=== PATIENT | female | born 1960 | race Caucasian/White ===

== ENCOUNTER 2020-06-15 12:16 | Day surgery (SDC) | payer MEDICARE ==
[2020-06-15] MEDS ORDERED: Depo-Medrol 40 MG/ML IM ONE (12:17)
[2020-06-15] MEDS ORDERED: Xylocaine-Mpf 2% 5 Ml Vial IJ ONE (12:17)
[2020-06-15] MEDS ORDERED: DIPRIVAN 200 MG/20 ML IV ONE (13:30)
[2020-06-15] MEDS ORDERED: Ketamine HCl 50 MG/ML ONE (13:30)
--- NOTE | 2020-06-15 15:15 | XRAY ---
Indication: Left L3-S1 MBB. Intraoperative fluoroscopy was provided for 10 seconds. Single digital spot image submitted for interpretation demonstrate posterior needle tips projecting over the expected left L3-S1 nerve roots. Correlate with intraoperative findings/report.
[2020-06-15] MEDS ORDERED: Lactated Ringers 1,000 ML IV ONE (15:16)
--- NOTE | 2020-06-15 15:21 | XRAY ---
10 seconds fluoroscopy time in surgery for left L3-S1 MBB.
== END 2020-06-15 14:00 | disposition home or self-care (01) ==
LOC: SDC-PAIN 12:16 → SDC 12:16
PROVIDERS: ATTEND Psychiatry & Neurology Pain Medicine
DX: M47.816 Spondylosis without myelopathy or radiculopathy, lumbar region (principal); I10 Essential (primary) hypertension; J44.9 Chronic obstructive pulmonary disease, unspecified; K21.9 Gastro-esophageal reflux disease without esophagitis; K50.90 Crohn's disease, unspecified, without complications; Z86.73 Personal history of transient ischemic attack (TIA), and cerebral infarction without residual deficits; Z79.899 Other long term (current) drug therapy; Z79.01 Long term (current) use of anticoagulants
CPT/HCPCS: 64493; 64494; 64495; 72020; 77002; 82947; 82962; J1030; J2704

== ENCOUNTER 2020-07-20 08:50 | Day surgery (SDC) | payer MEDICARE ==
[2020-07-20] MEDS ORDERED: BUPIVACAINE 0.5% VIAL IJ ONE (08:51)
[2020-07-20] MEDS ORDERED: Depo-Medrol 40 MG/ML IM ONE (08:51)
[2020-07-20] MEDS ORDERED: DIPRIVAN 200 MG/20 ML IV ONE (10:07)
[2020-07-20] MEDS ORDERED: Ketamine HCl 50 MG/ML ONE (10:07)
--- NOTE | 2020-07-20 12:12 | XRAY ---
Indication: Left L3-S1 MBB. Intraoperative fluoroscopy was provided for 24 seconds. Single digital spot image submitted for interpretation demonstrate posterior needle tips projecting over the expected left L3-S1 nerve roots. Correlate with intraoperative findings/report.
--- NOTE | 2020-07-20 12:16 | XRAY ---
24 seconds fluoroscopy time in surgery for left L3-S1 MBB.
[2020-07-20] MEDS ORDERED: Lactated Ringers 1,000 ML IV ONE (16:04)
== END 2020-07-20 10:39 | disposition home or self-care (01) ==
LOC: SDC-PAIN 08:50
PROVIDERS: ATTEND Psychiatry & Neurology Pain Medicine
DX: M47.816 Spondylosis without myelopathy or radiculopathy, lumbar region (principal); E11.9 Type 2 diabetes mellitus without complications; I10 Essential (primary) hypertension; J44.9 Chronic obstructive pulmonary disease, unspecified; K21.9 Gastro-esophageal reflux disease without esophagitis; I25.10 Atherosclerotic heart disease of native coronary artery without angina pectoris; M79.7 Fibromyalgia; G25.81 Restless legs syndrome; K50.90 Crohn's disease, unspecified, without complications; Z79.899 Other long term (current) drug therapy
CPT/HCPCS: 64493; 64494; 64495; 72020; 77002; 82947; 82962; J1030; J2704

== ENCOUNTER 2020-12-21 09:34 | Day surgery (SDC) | payer MEDICARE ==
[2020-12-21] MEDS ORDERED: LIDOCAINE HCL 2% 100 MG/5 ML IJ ONE (09:35)
[2020-12-21] MEDS ORDERED: DIPRIVAN 200 MG/20 ML IV ONE (10:41)
--- NOTE | 2020-12-21 11:09 | XRAY ---
Indication: Right L3-S1 MBB. Intraoperative fluoroscopy provided for 7 seconds. Single digital spot image submitted for interpretation demonstrates posterior needle tips projecting over the expected right L3-S1 nerve roots. Correlate with intraoperative findings/report.
[2020-12-21] MEDS ORDERED: Lactated Ringers 1,000 ML IV ONE (15:27)
--- NOTE | 2020-12-23 08:53 | XRAY ---
7 seconds fluoroscopy time in surgery for right L4-S1 MBB.
== END 2020-12-21 11:05 | disposition home or self-care (01) ==
LOC: SDC-PAIN 09:34
PROVIDERS: ATTEND Psychiatry & Neurology Pain Medicine
DX: M47.816 Spondylosis without myelopathy or radiculopathy, lumbar region (principal); E11.9 Type 2 diabetes mellitus without complications; I10 Essential (primary) hypertension; I25.10 Atherosclerotic heart disease of native coronary artery without angina pectoris; G25.81 Restless legs syndrome; J44.9 Chronic obstructive pulmonary disease, unspecified; K21.9 Gastro-esophageal reflux disease without esophagitis; K50.90 Crohn's disease, unspecified, without complications; M79.7 Fibromyalgia; Z79.899 Other long term (current) drug therapy
CPT/HCPCS: 64493; 64494; 64495; 72020; 77002; 82947; J2704

== ENCOUNTER 2021-01-25 08:00 | Day surgery (SDC) | payer MEDICARE ==
[2021-01-25] MEDS ORDERED: BUPIVACAINE 0.5% VIAL IJ ONE (08:01)
[2021-01-25] MEDS ORDERED: DIPRIVAN 200 MG/20 ML IV ONE (10:00)
[2021-01-25] MEDS ORDERED: Lactated Ringers 1,000 ML IV ONE (16:27)
--- NOTE | 2021-01-26 11:43 | XRAY ---
12 seconds fluoroscopy time in surgery for right L3-S1 MBB.
== END 2021-01-25 10:36 | disposition home or self-care (01) ==
LOC: SDC-PAIN 08:00
PROVIDERS: ATTEND Psychiatry & Neurology Pain Medicine
DX: M47.816 Spondylosis without myelopathy or radiculopathy, lumbar region (principal); I10 Essential (primary) hypertension; E11.9 Type 2 diabetes mellitus without complications; I25.10 Atherosclerotic heart disease of native coronary artery without angina pectoris; I50.9 Heart failure, unspecified; J44.9 Chronic obstructive pulmonary disease, unspecified; K21.9 Gastro-esophageal reflux disease without esophagitis; F41.9 Anxiety disorder, unspecified; F32.9 Major depressive disorder, single episode, unspecified; Z79.899 Other long term (current) drug therapy
CPT/HCPCS: 64493; 64494; 64495; 72020; 77002; 82947; J2704

== ENCOUNTER 2021-03-15 13:04 | Day surgery (SDC) | payer MEDICARE ==
[2021-03-15] MEDS ORDERED: Xylocaine 1% Vial 30 ML PF IJ ONE (13:05)
[2021-03-15] MEDS ORDERED: BUPIVACAINE 0.5% VIAL IJ ONE (13:05)
[2021-03-15] MEDS ORDERED: Depo-Medrol 40 MG/ML IM ONE (13:05)
[2021-03-15] MEDS ORDERED: Lactated Ringers 1,000 ML IV ONE (16:37)
--- NOTE | 2021-03-15 16:39 | XRAY ---
Indication: Right L3-S1 RFA. Intraoperative fluoroscopy provided for 31 seconds. 2 digital spot image submitted for interpretation demonstrates posterior needle tips projecting over the expected left L3-S1 nerve roots. Correlate with intraoperative findings/report.
--- NOTE | 2021-03-15 17:01 | XRAY ---
31 seconds fluoroscopy time in surgery for left L3-S1 RFA.
== END 2021-03-15 15:25 | disposition home or self-care (01) ==
LOC: SDC-PAIN 13:04
PROVIDERS: ATTEND Psychiatry & Neurology Pain Medicine
DX: M47.817 Spondylosis without myelopathy or radiculopathy, lumbosacral region (principal); E11.9 Type 2 diabetes mellitus without complications; Z79.899 Other long term (current) drug therapy
CPT/HCPCS: 64635; 64636; 72100; 77002; 82947; J1030; J2001

== ENCOUNTER 2021-03-22 13:24 | Day surgery (SDC) | payer MEDICARE ==
[2021-03-22] MEDS ORDERED: Marcaine Mpf 0.5% Vial 30 Ml IJ ONE (13:25)
[2021-03-22] MEDS ORDERED: Depo-Medrol 40 MG/ML IM ONE (13:25)
[2021-03-22] MEDS ORDERED: Xylocaine 1% Vial 30 ML PF IJ ONE (13:25)
[2021-03-22] MEDS ORDERED: Lactated Ringers 1,000 ML IV ONE (13:50)
[2021-03-22] MEDS ORDERED: DIPRIVAN 200 MG/20 ML IV ONE (14:32)
--- NOTE | 2021-03-22 17:03 | XRAY ---
23 seconds fluoroscopy time in surgery for right L3-S1 RFA.
--- NOTE | 2021-03-24 09:17 | XRAY ---
Indication: Right L3-S1 RFA. Intraoperative fluoroscopy was provided for 23 seconds. 3 digital spot films submitted for interpretation demonstrate posterior needle tips projected over the expected course of the right L3-S1 nerve roots. Correlate with intraoperative findings/report.
== END 2021-03-22 15:05 | disposition home or self-care (01) ==
LOC: SDC-PAIN 13:24
PROVIDERS: ATTEND Psychiatry & Neurology Pain Medicine
DX: M47.816 Spondylosis without myelopathy or radiculopathy, lumbar region (principal); E11.9 Type 2 diabetes mellitus without complications; Z79.899 Other long term (current) drug therapy
CPT/HCPCS: 64635; 64636; 72100; 77002; 82947; J1030; J2001; J2704

== ENCOUNTER 2023-05-15 07:01 | Day surgery (SDC) | payer MEDICARE ==
[2023-05-15] MEDS ORDERED: BUPIVACAINE 0.5% VIAL IJ ONE (07:02)
[2023-05-15] MEDS ORDERED: Depo-Medrol 40 MG/ML IM ONE (07:02)
[2023-05-15] MEDS ORDERED: XYLOCAINE 1% HCL 20 ML MDV IJ ONE (07:02)
[2023-05-15] MEDS ORDERED: DIPRIVAN 200 MG/20 ML IV ONE ×2 (07:54→08:12)
--- NOTE | 2023-05-15 09:48 | XRAY ---
Indication: Left L4-S1 RFA. Intraoperative fluoroscopy provided for 21 seconds. 3 digital spot image submitted for interpretation demonstrates posterior needle tips projecting over the expected left L4-S1 nerve roots. Correlate with intraoperative findings/report.
--- NOTE | 2023-05-15 11:36 | XRAY ---
21 seconds of fluoroscopy was used in surgery for a left L4-S1 RFA.
[2023-05-15] MEDS ORDERED: Lactated Ringers 1,000 ML IV ONE (11:41)
== END 2023-05-15 09:15 | disposition home or self-care (01) ==
LOC: SDC-PAIN 07:01
PROVIDERS: ATTEND Psychiatry & Neurology Pain Medicine
DX: M47.816 Spondylosis without myelopathy or radiculopathy, lumbar region (principal); E11.9 Type 2 diabetes mellitus without complications; Z79.899 Other long term (current) drug therapy
CPT/HCPCS: 64635; 64636; 72100; 77002; 82947; J1030; J2704

== ENCOUNTER 2023-05-29 06:48 | Day surgery (SDC) | payer MEDICARE ==
[2023-05-29] MEDS ORDERED: Depo-Medrol 40 MG/ML IM ONE (06:49)
[2023-05-29] MEDS ORDERED: BUPIVACAINE 0.5% VIAL IJ ONE (06:49)
[2023-05-29] MEDS ORDERED: LIDOCAINE HCL 1% 50 MG/5 ML VL PF IJ ONE (06:49)
[2023-05-29] MEDS ORDERED: DIPRIVAN 200 MG/20 ML IV ONE (08:05)
[2023-05-29] MEDS ORDERED: PHENYLEPHRINE HCL ONE (08:18)
[2023-05-29] MEDS ORDERED: Lactated Ringers 1,000 ML IV ONE (09:46)
--- NOTE | 2023-05-29 10:27 | XRAY ---
Indication: Right L4-S1 RFA. Intraoperative fluoroscopy provided for 28 seconds. 4 digital spot images submitted for interpretation demonstrates posterior needle tips projecting over the expected right L4-S1 nerve roots. Correlate with intraoperative findings/report.
--- NOTE | 2023-05-29 11:46 | XRAY ---
28 seconds of fluoroscopy was used in surgery for a right L4-S1 RFA.
== END 2023-05-29 08:45 | disposition home or self-care (01) ==
LOC: SDC-PAIN 06:48
PROVIDERS: ATTEND Psychiatry & Neurology Pain Medicine
DX: M47.816 Spondylosis without myelopathy or radiculopathy, lumbar region (principal); E11.9 Type 2 diabetes mellitus without complications
CPT/HCPCS: 64635; 64636; 72100; 77002; 82947; J1030; J2001; J2371; J2704

== ENCOUNTER 2023-07-10 06:55 | Day surgery (SDC) | payer MEDICARE ==
[2023-07-10] MEDS ORDERED: Sodium Chloride 0.9(Preservative Free) 10 ML IJ ONE (06:56)
[2023-07-10] MEDS ORDERED: Depo-Medrol 40 MG/ML IM ONE (06:56)
[2023-07-10] MEDS ORDERED: XYLOCAINE-MPF 1% 5ML SDV IJ ONE (06:56)
[2023-07-10] MEDS ORDERED: Xopenex 1.25 MG/0.5 ML UD NEBULE IH ONE (08:59)
[2023-07-10] MEDS ORDERED: Sodium Chloride 3 ML UD NEBULES IH ONE (08:59)
[2023-07-10 09:09] VITALS: PULSE 66; RESP 18; O2SAT 95
[2023-07-10] MEDS ORDERED: DIPRIVAN 200 MG/20 ML IV ONE (09:49)
[2023-07-10] MEDS ORDERED: Lactated Ringers 1,000 ML IV ONE (10:03)
--- NOTE | 2023-07-10 12:11 | XRAY ---
Indication: Lumbar JOSÉ. Intraoperative fluoroscopy provided for 19 seconds. 2 digital spot image submitted for interpretation demonstrates posterior needle tip projecting posterior to L4-L5 interspace. Small amount of contrast injected for needle tip placement. Correlate with intraoperative findings/report.
--- NOTE | 2023-07-10 12:27 | XRAY ---
19 seconds of fluoroscopy was used in surgery for a lumbar JOSÉ.
== END 2023-07-10 10:20 | disposition home or self-care (01) ==
LOC: SDC-PAIN 06:55
PROVIDERS: ATTEND Psychiatry & Neurology Pain Medicine
DX: M54.16 Radiculopathy, lumbar region (principal); E11.9 Type 2 diabetes mellitus without complications; Z79.899 Other long term (current) drug therapy
CPT/HCPCS: 62323; 72100; 77003; 82947; 94640; J1030; J2704; J7614; Q9966; A9270-GY

== ENCOUNTER 2024-01-22 09:56 | Day surgery (SDC) | payer MEDICARE ==
[2024-01-22] MEDS ORDERED: Sodium Chloride 0.9(Preservative Free) 10 ML IJ ONE (09:57)
[2024-01-22] MEDS ORDERED: XYLOCAINE-MPF 1% 5ML SDV IJ ONE (09:57)
[2024-01-22] MEDS ORDERED: Depo-Medrol 40 MG/ML IM ONE (09:57)
[2024-01-22] MEDS ORDERED: DIPRIVAN 200 MG/20 ML IV ONE (11:26)
[2024-01-22] MEDS ORDERED: MORPHINE SULFATE 2 MG INJ ONE ×2 (11:53→12:06)
[2024-01-22] MEDS ORDERED: Lactated Ringers 1,000 ML IV ONE (12:14)
--- NOTE | 2024-01-22 13:10 | XRAY ---
Indication: Lumbar JOSÉ. Intraoperative fluoroscopy provided for 18 seconds. 2 digital spot images submitted for interpretation demonstrates posterior needle tip projecting posterior to L4-L5 interspace. Small amount of contrast injected for needle tip placement. Correlate with intraoperative findings/report.
--- NOTE | 2024-01-22 14:40 | XRAY ---
18 seconds of fluoroscopy was used in surgery for a lumbar JOSÉ.
== END 2024-01-22 12:29 | disposition home or self-care (01) ==
LOC: SDC-PAIN 09:56
PROVIDERS: ATTEND Psychiatry & Neurology Pain Medicine
DX: M54.16 Radiculopathy, lumbar region (principal); E11.9 Type 2 diabetes mellitus without complications
CPT/HCPCS: 62323; 72100; 77003; 82947; J1010; J2270; J2704; Q9966

== ENCOUNTER 2024-05-27 09:44 | Day surgery (SDC) | payer MEDICARE ==
[2024-05-27] MEDS ORDERED: BUPIVACAINE 0.5% VIAL IJ ONE (09:45)
[2024-05-27] MEDS ORDERED: Depo-Medrol 40 MG/ML IM ONE (09:45)
[2024-05-27] MEDS ORDERED: LIDOCAINE HCL 1% AMPUL 5 ML IJ ONE (09:45)
[2024-05-27] MEDS ORDERED: DIPRIVAN 200 MG/20 ML IV ONE (11:34)
[2024-05-27] MEDS ORDERED: MORPHINE SULFATE 2 MG INJ ONE (12:17)
--- NOTE | 2024-05-27 12:19 | XRAY ---
Indication: Right L4-S1 RFA. Intraoperative fluoroscopy provided for 16 seconds. 4 digital spot image submitted for interpretation demonstrates posterior needle tips projecting over the expected right L4-S1 nerve roots. Correlate with intraoperative findings/report.
[2024-05-27] MEDS ORDERED: TORAdol 30 mg Injection ONE (12:26)
--- NOTE | 2024-05-27 12:36 | XRAY ---
16 seconds of fluoroscopy was used in surgery for a right L4-S1 RFA.
[2024-05-27] MEDS ORDERED: Sodium Chloride 0.9% 250 ML 500 ML IV ONE (16:02)
== END 2024-05-27 12:48 | disposition home or self-care (01) ==
LOC: SDC-PAIN 09:44
PROVIDERS: ATTEND Psychiatry & Neurology Pain Medicine
DX: M47.816 Spondylosis without myelopathy or radiculopathy, lumbar region (principal); E11.9 Type 2 diabetes mellitus without complications
CPT/HCPCS: 64635; 64636; 72100; 77002; 82947; J1885; J2270; J2704

== ENCOUNTER 2024-06-10 07:02 | Day surgery (SDC) | payer MEDICARE ==
[2024-06-10] MEDS ORDERED: BUPIVACAINE 0.5% VIAL IJ ONE (07:03)
[2024-06-10] MEDS ORDERED: Depo-Medrol 40 MG/ML IM ONE (07:03)
[2024-06-10] MEDS ORDERED: LIDOCAINE HCL 1% AMPUL 5 ML IJ ONE (07:03)
[2024-06-10] MEDS ORDERED: DIPRIVAN 200 MG/20 ML IV ONE (08:05)
--- NOTE | 2024-06-10 10:16 | XRAY ---
Indication: Left L4-S1 RFA. Intraoperative fluoroscopy provided for 18 seconds. 4 digital spot image submitted for interpretation demonstrates posterior needle tips projecting over the expected left L4-S1 nerve root. Correlate with intraoperative findings/report.
--- NOTE | 2024-06-10 11:46 | XRAY ---
18 seconds of fluoroscopy was used in surgery for a left L4-S1 RFA.
== END 2024-06-10 08:35 | disposition home or self-care (01) ==
LOC: SDC-PAIN 07:02
PROVIDERS: ATTEND Psychiatry & Neurology Pain Medicine
DX: M47.817 Spondylosis without myelopathy or radiculopathy, lumbosacral region (principal); E11.9 Type 2 diabetes mellitus without complications
CPT/HCPCS: 72100; 77002; 82947; J2704